=== PATIENT | female | born 1955 | race Caucasian/White ===

== ENCOUNTER → 2017-11-10 13:53 | Outpatient (CLI) | payer OTHER, SELFPAY ==
--- NOTE | 2017-11-10 | DI.MG.S_ITS ---
BILATERAL DIGITAL SCREENING MAMMOGRAM 3D/2D WITH CAD: 11/10/2017 CLINICAL: Routine screening. Family history of breast cancer. Comparison is made to exams dated: 11/07/2016 mammogram, 11/02/2015 mammogram, and 11/02/2015 mammogram - [facility]. The tissue of both breasts is heterogeneously dense. This may lower the sensitivity of mammography. Current study was also evaluated with a Computer Aided Detection (CAD) system. No significant masses, calcifications, or other findings are seen in either breast. There has been no significant interval change. IMPRESSION: NEGATIVE There is no mammographic evidence of malignancy. A 1 year screening mammogram is recommended. This exam was interpreted at Station ID: [id number]. NOTE: For mammograms, a report in lay terms will be sent to the patient. Approximately 15% of breast malignancies will not be visualized mammographically. In the management of a palpable breast mass, a negative mammogram must not discourage biopsy of a clinically suspicious lesion. Electronically Signed By: Vic griffin/more:11/10/2017 16:23:42 letter sent: Normal Exam ACR BI-RADS Category 1: Negative 3341F
== END ==
PROVIDERS: PCP Physician Assistant; Visit Provider Physician Assistant
DX: Z12.31 Encounter for screening mammogram for malignant neoplasm of breast (principal); Z80.3 Family history of malignant neoplasm of breast
CPT/HCPCS: 77063; 77067

== ENCOUNTER → 2017-12-01 12:06 | Outpatient (CLI) | payer OTHER, SELFPAY ==
[2017-12-01 13:15] LABS: Thyroid Stimulating Hormone 2.48 uIU/mL (0.47-4.68)
== END ==
PROVIDERS: PCP Physician Assistant; Visit Provider Physician Assistant
DX: R94.6 Abnormal results of thyroid function studies (principal); E03.9 Hypothyroidism, unspecified
CPT/HCPCS: 36415; 84443

== ENCOUNTER → 2018-11-12 11:22 | Outpatient (CLI) | payer OTHER, SELFPAY ==
--- NOTE | 2018-11-12 | DI.MG.S_ITS ---
BILATERAL DIGITAL SCREENING MAMMOGRAM 3D/2D WITH CAD: 11/12/2018 CLINICAL: Routine screening. Comparison is made to exams dated: 11/10/2017 mammogram, 11/07/2016 mammogram, and 11/02/2015 mammogram - [facility]. The tissue of both breasts is heterogeneously dense. This may lower the sensitivity of mammography. Current study was also evaluated with a Computer Aided Detection (CAD) system. No significant masses, calcifications, or other findings are seen in either breast. There has been no significant interval change. IMPRESSION: NEGATIVE There is no mammographic evidence of malignancy. A 1 year screening mammogram is recommended. This exam was interpreted at Station ID: [id number]. NOTE: For mammograms, a report in lay terms will be sent to the patient. Approximately 15% of breast malignancies will not be visualized mammographically. In the management of a palpable breast mass, a negative mammogram must not discourage biopsy of a clinically suspicious lesion. Electronically Signed By: Patric oviedo/more:11/12/2018 17:04:13 letter sent: Normal Exam ACR BI-RADS Category 1: Negative 3341F
== END ==
PROVIDERS: PCP Physician Assistant; Visit Provider Physician Assistant
DX: Z12.31 Encounter for screening mammogram for malignant neoplasm of breast (principal)
CPT/HCPCS: 77063; 77067

== ENCOUNTER → 2018-12-11 07:01 | Outpatient (CLI) | payer OTHER, SELFPAY ==
[2018-12-11 09:03] LABS: Alanine Aminotransferase 22 IU/L (9-52); Albumin 4.3 g/dL (3.5-5.0); Albumin Globulin Ratio 1.4 (1.0-2.8); Alkaline Phosphatase 53 U/L (38-126); Aspartate Aminotransferase 40 IU/L (14-36); BUN Creatinine Ratio 25.7 (6-22); Bilirubin Total 0.5 mg/dL (0.2-1.3); Blood Urea Nitrogen 18 mg/dL (7-17); Calcium 9.3 mg/dL (8.4-10.2); Carbon Dioxide 31 mmol/L (22-32); Chloride 107 mmol/L (98-107); Cholesterol 170 mg/dL (140-199); Estimated Glomerular Filt Rate > 60.0 mL/min (>60); Glucose 77 mg/dL (80-110); HDL Cholesterol 56 mg/dL (40-60); HEMOLYSIS < 15 (0-50); LDL Cholesterol Calculated 101 mg/dL (<100); Potassium 4.2 mmol/L (3.4-5.1); Sodium 145 mmol/L (137-145); Total Protein 7.3 g/dL (6.3-8.2); Triglycerides 63 mg/dL (35-150)
[2018-12-11 09:30] LABS: Thyroid Stimulating Hormone 2.76 uIU/mL (0.47-4.68)
== END ==
PROVIDERS: PCP Physician Assistant; Visit Provider Physician Assistant
DX: E03.9 Hypothyroidism, unspecified (principal); Z13.220 Encounter for screening for lipoid disorders; Z13.6 Encounter for screening for cardiovascular disorders
CPT/HCPCS: 36415; 80053; 80061; 84443

== ENCOUNTER → 2019-08-28 08:11 | Outpatient (CLI) | payer OTHER, SELFPAY ==
[2019-08-28 10:14] LABS: Appearance Urine UA CLEAR; Bilirubin Urine UA NEGATIVE (NEGATIVE); Color Urine UA YELLOW; Glucose Urine UA NEGATIVE (Negative); Ketones Urine UA NEGATIVE (NEGATIVE); Leukocyte Esterase Urine UA TRACE (NEGATIVE); Nitrite Urine UA NEGATIVE (Negative); Occult Blood Urine UA TRACE-INTACT (Negative); Protein Urine UA NEGATIVE (Negative); Specific Gravity Urine UA <=1.005 (1.000-1.035); Urobilinogen Urine UA 0.2 E.U./dL (0.2)
[2019-08-28 10:23] LABS: Bacteria Urine Occasional (0-1); Culture Indicated Urine Specimen Cultured; RBC Urine 0-1/HPF (0-5/HPF); WBC Urine 0-1/HPF (0-5/HPF); pH Urine UA 6.5 (4.5-8.0)
== END ==
PROVIDERS: PCP Family Medicine; Referring Provider Specialist; Visit Provider Specialist
DX: R30.0 Dysuria (principal); R39.15 Urgency of urination
CPT/HCPCS: 81001; 87086

== ENCOUNTER → 2019-11-15 07:09 | Outpatient (CLI) | payer OTHER, SELFPAY ==
[2019-11-15 07:51] LABS: Add Manual Diff / Slide Review NO; Basophils Absolute Auto 0 /uL (0-100); Basophils Percent Auto 0.4 % (0-2); Eosinophils Absolute Auto 100 /uL (0-450); Eosinophils Percent Auto 1.6 % (2-4); Hematocrit 37.4 % (36-46); Hemoglobin 12.7 g/dL (12.0-16.0); Lymphocytes Absolute Auto 2300 /uL (1100-4500); Lymphocytes Percent Auto 31.3 % (25-40); Mean Corpuscular Hemoglobin 29.4 PG (26-34); Mean Corpuscular Volume 86.3 fL (80-100); Monocytes Absolute Auto 500 /uL (0-900); Monocytes Percent Auto 6.6 % (3-14); Neutrophils Absolute Auto 4300 /uL (1500-7000); Neutrophils Percent Auto 60.1 % (50-75); Platelet Count 260 X10^3/uL (150-400); Red Blood Cell Count 4.34 X10^6/uL (4.0-5.2); Red Cell Distribution Width 13.4 % (11.6-14.8); White Blood Cell Count 7.2 X10^3/uL (4.5-11.0)
[2019-11-15 08:05] LABS: Blood Urea Nitrogen 24 mg/dL (7-17); Calcium 9.4 mg/dL (8.4-10.2); Carbon Dioxide 28 mmol/L (22-32); Chloride 107 mmol/L (98-107); Cholesterol 176 mg/dL (140-199); Estimated Glomerular Filt Rate > 60.0 mL/min (>60); Glucose 85 mg/dL (80-110); HDL Cholesterol 54 mg/dL (40-60); HEMOLYSIS < 15 (0-50); LDL Cholesterol Calculated 111 mg/dL (<100); Potassium 4.2 mmol/L (3.4-5.1); Sodium 140 mmol/L (137-145); Triglycerides 57 mg/dL (35-150)
[2019-11-15 08:39] LABS: TSH w/ Reflex to FT4 3.33 uIU/mL (0.47-4.68)
== END ==
PROVIDERS: PCP Family Medicine; Referring Provider Family Medicine; Visit Provider Family Medicine
DX: Z13.220 Encounter for screening for lipoid disorders (principal); E03.9 Hypothyroidism, unspecified; M81.0 Age-related osteoporosis without current pathological fracture
CPT/HCPCS: 36415; 80048; 80061; 84443; 85025

== ENCOUNTER → 2019-12-29 16:38 | Outpatient (CLI) | payer OTHER, SELFPAY ==
--- NOTE | 2019-12-29 16:41 | DI.MG.S_ITS ---
BILATERAL DIGITAL SCREENING MAMMOGRAM 3D/2D WITH CAD: 12/29/2019 CLINICAL: Routine screening. Comparison is made to exams dated: 11/12/2018 mammogram, 11/10/2017 mammogram, and 11/07/2016 mammogram - [facility]. The tissue of both breasts is heterogeneously dense. This may lower the sensitivity of mammography. Current study was also evaluated with a Computer Aided Detection (CAD) system. There are benign lymph nodes in both breasts. There also are benign post operative findings in the left breast. No significant masses, calcifications, or other findings are seen in either breast. There has been no significant interval change. IMPRESSION: There is no mammographic evidence of malignancy. A 1 year screening mammogram is recommended. This exam was interpreted at Station ID: [id number]. NOTE: For mammograms, a report in lay terms will be sent to the patient. Approximately 15% of breast malignancies will not be visualized mammographically. In the management of a palpable breast mass, a negative mammogram must not discourage biopsy of a clinically suspicious lesion. Electronically Signed By: Patric oviedo/more:12/29/2019 18:13:05 letter sent: Normal Exam ACR BI-RADS Category 2: Benign Finding(s) 3342F
== END ==
PROVIDERS: PCP Family Medicine; Referring Provider Family Medicine; Visit Provider Family Medicine
DX: Z12.31 Encounter for screening mammogram for malignant neoplasm of breast (principal)
CPT/HCPCS: 77063; 77067

== ENCOUNTER → 2020-11-13 06:56 | Outpatient (CLI) | payer OTHER, SELFPAY ==
[2020-11-13 08:03] LABS: Hematocrit 38.3 % (36-46); Hemoglobin 12.9 g/dL (12.0-16.0); Mean Corpuscular HGB Conc 33.8 % (30-36); Mean Corpuscular Hemoglobin 28.7 PG (26-34); Mean Corpuscular Volume 85.1 fL (80-100); Platelet Count 253 X10^3/uL (150-400); Red Cell Distribution Width 13.6 % (11.6-14.8); White Blood Cell Count 5.9 X10^3/uL (4.5-11.0)
[2020-11-13 08:17] LABS: BUN Creatinine Ratio 21.6 (6-22); Blood Urea Nitrogen 16 mg/dL (7-17); Calcium 9.6 mg/dL (8.4-10.2); Carbon Dioxide 29 mmol/L (22-32); Chloride 103 mmol/L (98-107); Cholesterol 159 mg/dL (140-199); Estimated Glomerular Filt Rate > 60.0 mL/min (>60); Glucose 86 mg/dL (80-110); HDL Cholesterol 51 mg/dL (40-60); HEMOLYSIS < 15 (0-50); LDL Cholesterol Calculated 92 mg/dL (<100); Potassium 4.3 mmol/L (3.4-5.1); Sodium 139 mmol/L (137-145); Triglycerides 79 mg/dL (35-150)
[2020-11-13 08:54] LABS: TSH w/ Reflex to FT4 2.34 uIU/mL (0.47-4.68)
[2020-11-13 10:06] LABS: Neutrophils Absolute Manual 3481 /uL (3000-5900); Total Cells Counted 100
[2020-11-13 10:08] LABS: RBC Morphology Norm
== END ==
PROVIDERS: PCP Family Medicine; Referring Provider Family Medicine; Visit Provider Family Medicine
DX: E03.9 Hypothyroidism, unspecified (principal)
CPT/HCPCS: 36415; 80048; 80061; 84443; 85025

== ENCOUNTER → 2021-01-01 14:13 | Outpatient (CLI) | payer OTHER, SELFPAY ==
--- NOTE | 2021-01-01 | DI.MG.S_ITS ---
BILATERAL DIGITAL SCREENING MAMMOGRAM 3D/2D WITH CAD: 01/01/2021 CLINICAL: Routine screening. Comparison is made to exams dated: 12/29/2019 mammogram, 11/12/2018 mammogram, and 11/10/2017 mammogram - [facility]. The tissue of both breasts is heterogeneously dense. This may lower the sensitivity of mammography. Current study was also evaluated with a Computer Aided Detection (CAD) system. No significant masses, calcifications, or other findings are seen in either breast. There has been no significant interval change. IMPRESSION: NEGATIVE There is no mammographic evidence of malignancy. A 1 year screening mammogram is recommended. This exam was interpreted at Station ID: [id number]. NOTE: For mammograms, a report in lay terms will be sent to the patient. Approximately 15% of breast malignancies will not be visualized mammographically. In the management of a palpable breast mass, a negative mammogram must not discourage biopsy of a clinically suspicious lesion. Electronically Signed By: Norberto flanagan/more:01/01/2021 15:50:38 letter sent: Normal Exam ACR BI-RADS Category 1: Negative 3341F
== END ==
PROVIDERS: PCP Family Medicine; Referring Provider Family Medicine; Visit Provider Family Medicine
DX: Z12.31 Encounter for screening mammogram for malignant neoplasm of breast (principal)
CPT/HCPCS: 77063; 77067

== ENCOUNTER → 2021-02-08 08:44 | Outpatient (CLI) | payer OTHER, SELFPAY ==
[2021-02-08 11:18] LABS: COVID19 -Nasal RAPID Negative (Negative)
== END ==
PROVIDERS: PCP Family Medicine; Referring Provider Specialist; Visit Provider Specialist
DX: Z01.812 Encounter for preprocedural laboratory examination (principal); Z20.822 Contact with and (suspected) exposure to COVID-19
CPT/HCPCS: 87635; C9803

== ENCOUNTER 2021-02-09 07:27 | Day surgery (SDC) | payer OTHER, SELFPAY ==
--- NOTE | 2021-02-09 | PATH_ITS ---
[facility] Accession Number: [id number] . 01 Material submitted: . colon - POLYP AT 25CM X2 . 02 Diagnosis: Colon, Polyp at 25 cm x2, Biopsy: Tubular adenoma in three of four fragments. Hyperplastic polyp in one fragment. MRV 02/13/2021 1211 Local . 02 Electronically signed: . Chloé Rodgers MD, Pathologist NPI- [id number] . 01 Gross description: . POLYP AT 25CM X2: Received in formalin are multiple fragment(s) of hendrix, soft tissue measuring 1.0 x 0.3 x 0.1 cm in aggregate submitted entirely in 1 cassette(s) /YING 02/10/2021 0454 Local . 02 Pathologist provided ICD-10: K63.5 . 02 CPT . 104804 Performed at: 01 [facility] [address] [id number] MD Jessee Guzmán MD Phone: [phone] Performed at: 02 [facility] [address] [place], [place] [id number] MD Chloé Rodgers MD Phone: [phone]
[2021-02-09 07:50] VITALS: BP 113/75; PULSE 68; RESP 20; TEMP 36.4; O2SAT 100; BMI 23.3
[2021-02-09] MEDS: FLEETS ENEMA 1 EACH PR (08:05)
[2021-02-09] MEDS: LACTATED RINGERS 1,000 ML 150 ML IV (08:18)
--- NOTE | 2021-02-09 08:26 | SUR.PREOP ---
Pt given fleets enema due to muddy output from prep, up to BR, out after fleets is much clearer.
--- NOTE | 2021-02-09 09:09 | PM.HP.1 ---
History of Present Illness History of Present Illness Date Patient Seen: 02/09/21 Time Patient Seen: 09:10 Chief complaint: SDC Narrative: The patient is a woman here for screening colonoscopy. No family history of colon cancer. Last colonoscopy 10 years ago. Patient History Medical History (Updated 12/20/20 @ 09:33 by Indio Melendez DO) Bee sting allergy Bilateral leg pain Leg cramps, sleep related Lichenification Low back pain Osteoporosis without current pathological fracture Screen for colon cancer Surgical History Status post breast lumpectomy Family & Social History Family History Brother History of skin cancer Father History of skin cancer Mother Other and unspecified hyperlipidemia History of skin cancer Hypertension Social History: household members spouse Tobacco & Substance use: Smoking Status Former smoker alcohol intake current alcohol intake frequency a few times a month Substance Use Type marijuana Meds Home Medications and Allergies Home Medications Medication Instructions Recorded Confirmed Type Vitamin D3 1 cap PO DAILY 12/17/18 02/09/21 History epinephrine 1 mg/mL injection kit 1 mg IM Q20M PRN #1 each 10/14/19 02/09/21 Rx coenzyme Q10 200 mg/gram oral 200 mg PO DAILY 01/18/20 02/09/21 History powder (H2Q CoQ10) magnesium 30 mg tablet 30 mg PO DAILY 01/18/20 02/09/21 History omega-3 fatty acids 1,000 mg 1,000 mg PO DAILY 01/18/20 02/09/21 History capsule (Fish Oil Concentrate) cyclobenzaprine 10 mg tablet See Rx Instructions .ROUTE 04/06/20 02/09/21 Rx .COMPLEX #30 tab levothyroxine 88 mcg tablet See Rx Instructions .ROUTE 11/30/20 02/09/21 Rx .COMPLEX #90 tab Allergies Allergy/AdvReac Type Severity Reaction Status Date / Time shellfish derived Allergy Severe ITCHING Verified 02/09/21 08:15 [SHELLFISH DERIVED] AND HIVES venom-wasp Allergy Severe Swelling Verified 12/20/20 09:00 and itching hydrocodone [From VICODIN] AdvReac Severe itchy Verified 02/09/21 08:15 Review of Systems Review of Systems Narrative: No cardiopulmonary problems. No GI or symptomatology. Exam Vital Signs (past 8 hours): - 02/09/21 07:50 Temperature 97.5 F L Pulse Rate 68 Respiratory Rate 20 Blood Pressure 113/75 Pulse Oximetry 100 Oxygen Delivery Method Room Air Narrative Exam Narrative: Pleasant cooperative patient no apparent distress. Lungs are clear to auscultation. No rales or rhonchi. Heart regular rate and rhythm no murmur gallop. Abdomen is soft nontender without mass. No obvious hernias. Patient is alert and oriented x3. Assessment & Plan Assessment & Plan narrative: I have discussed the procedure and the rationale with the patient including risks of bleeding, perforation which would necessitate a major operation, failure to find remove all lesions and the potential to tattoo. They appeared to understand and wished to proceed. Time Spent With Patient Critical Care time: I spent a total of [] minutes of critical care time on this patient's care today; this time is exclusive of procedural time.
--- NOTE | 2021-02-09 09:12 | PM.PREOP ---
Pre-operative Note COVID-19 COVID-19 status: Negative Result date/Date tested (Pos, Neg/Pending): 02/08/21 Interval Note History & Physical reviewed/Exam performed by Physician: Yes Changes to H&P: No ASA Class (for procedural sedation): I
--- NOTE | 2021-02-09 09:39 | PM.OP.ENDO ---
Operative Date/Time/Diagnoses Date of procedure: 02/09/21 Time of procedure: 09:39 Pre-op diagnosis: Screening exam. Post-op diagnosis: other (Screening exam. Two small polyps distal colon/rectal area.) Procedure & Clinicians Study performed: Colonoscopy with cold biopsy Same procedure as scheduled: Yes Indications: Screening. Last exam 10 years ago. Surgeon: Arsen Bell Procedure Notes SCOAP/Timeout: Performed Procedure in detail: The patient was placed in the left lateral decubitus position and underwent IV sedation directed by the surgeon consisting of fentanyl and Versed. Digital exam was unremarkable. The scope was inserted and advanced through the rectum into the sigmoid, descending, transverse, and ascending colon. There was some narrowing entering into the sigmoid colon but otherwise I do not really see any inflammation or diverticuli. The cecum was reached identified by the ileocecal valve and the appendiceal opening. The scope was gradually brought out. Two small Polyps were found at 20-25 cm from the anal verge. These were placed in the same container. They appeared to be completely removed with cold large biopsy forceps. The scope ultimately was retroflexed in the rectum. The appearance was normal except for some scarring. There did not appear to be any active hemorrhoidal disease. The scope was removed and the patient tolerated the procedure well. Prep was very good Scope withdrawal time: 8 minutes(11 total) Sedation minutes: 22 Findings: polyp Specimen(s): other (Polyps) Complications: none Post-procedure Recommendations: Colonscopy in 5 years Follow up: as needed Disposition: PACU
[2021-02-09] MEDS: diphenhydrAMINE 50 MG/ML VIAL 25 MG IV (09:40)
[2021-02-09] MEDS: fentaNYL 250 MCG/5 ML INJ IV (09:41)
[2021-02-09] MEDS: MIDAZOLAM 5 MG/5 ML VIAL IV (09:41)
[2021-02-09 09:42] VITALS: BP 131/67; PULSE 55; RESP 9; O2SAT 100
[2021-02-09 09:47] VITALS: BP 130/70; PULSE 54; RESP 11; O2SAT 99
[2021-02-09 09:52] VITALS: BP 131/70; PULSE 53; RESP 16; O2SAT 99
[2021-02-09 09:57] VITALS: BP 138/78; PULSE 75; RESP 11; TEMP 36.6; O2SAT 99
[2021-02-09 10:15] VITALS: BP 111/69; PULSE 51; RESP 16; TEMP 36.7; O2SAT 99
--- NOTE | 2021-02-09 14:55 | SUR.PHASEII ---
Late entry: 1030, pt ready to go, belly soft, + bowel tones tolerated fluids left when ready and left in stable condition.
== END 2021-02-09 10:30 | disposition home or self-care (01) ==
PROVIDERS: PCP Family Medicine; Referring Provider Specialist; Visit Provider Specialist
PROC: 0DJD8ZZ Inspection of Lower Intestinal Tract, Via Natural or Artificial Opening Endoscopic (ICD-10-PCS; CPT 45378; principal; 2021-02-09 08:30)
DX: Z12.11 Encounter for screening for malignant neoplasm of colon (principal); D12.6 Benign neoplasm of colon, unspecified
CPT/HCPCS: 45380; 99152; J1200; J2250; J3010

== ENCOUNTER → 2022-01-02 07:29 | Outpatient (CLI) | payer OTHER, SELFPAY ==
--- NOTE | 2022-01-02 | DI.MG.S_ITS ---
BILATERAL DIGITAL SCREENING MAMMOGRAM 3D/2D WITH CAD: 01/02/2022 CLINICAL: Routine screening. Comparison is made to exams dated: 01/01/2021 mammogram, 12/29/2019 mammogram, and 11/12/2018 mammogram - [facility]. The tissue of both breasts is heterogeneously dense. This may lower the sensitivity of mammography. Current study was also evaluated with a Computer Aided Detection (CAD) system. There are benign post operative findings in the left breast. No significant masses, calcifications, or other findings are seen in either breast. There has been no significant interval change. IMPRESSION: BENIGN There is no mammographic evidence of malignancy. A 1 year screening mammogram is recommended. Based on the Tyrer Cuzick model (a risk assessment model) the patient's lifetime risk is 12.3% and her 10 year risk is 5.8%. According to the ACR, ACS, and NCCN guidelines, an annual breast MRI exam along with mammogram is recommended if the patient's lifetime risk is 20% or greater. This exam was interpreted at Station ID: [id number]. NOTE: For mammograms, a report in lay terms will be sent to the patient. Approximately 15% of breast malignancies will not be visualized mammographically. In the management of a palpable breast mass, a negative mammogram must not discourage biopsy of a clinically suspicious lesion. Electronically Signed By: Tess bettencourt/more:01/02/2022 13:40:56 letter sent: Normal Exam ACR BI-RADS Category 2: Benign Finding(s) 3342F
== END ==
PROVIDERS: PCP Family Medicine; Referring Provider Family Medicine; Visit Provider Family Medicine
DX: Z12.31 Encounter for screening mammogram for malignant neoplasm of breast (principal)
CPT/HCPCS: 77063; 77067

== ENCOUNTER → 2022-03-25 06:52 | Outpatient (CLI) | payer OTHER, SELFPAY ==
[2022-03-25 08:49] LABS: Add Manual Diff / Slide Review NO; Basophils Absolute Auto 0 /uL (0-100); Basophils Percent Auto 0.6 % (0-2); Eosinophils Absolute Auto 200 /uL (0-450); Eosinophils Percent Auto 2.3 % (2-4); Hematocrit 38.2 % (36-46); Hemoglobin 12.7 g/dL (12.0-16.0); Lymphocytes Absolute Auto 2200 /uL (1100-4500); Lymphocytes Percent Auto 32.5 % (25-40); Mean Corpuscular HGB Conc 33.3 % (30-36); Mean Corpuscular Hemoglobin 28.2 PG (26-34); Mean Corpuscular Volume 84.7 fL (80-100); Monocytes Absolute Auto 500 /uL (0-900); Monocytes Percent Auto 6.8 % (3-14); Neutrophils Absolute Auto 4000 /uL (1500-7000); Neutrophils Percent Auto 57.8 % (50-75); Platelet Count 257 X10^3/uL (150-400); Red Blood Cell Count 4.51 X10^6/uL (4.0-5.2); Red Cell Distribution Width 13.7 % (11.6-14.8); White Blood Cell Count 6.9 X10^3/uL (4.5-11.0)
[2022-03-25 09:03] LABS: Alanine Aminotransferase 17 IU/L (<35); Albumin 4.2 g/dL (3.5-5.0); Albumin Globulin Ratio 1.4 (1.0-2.8); Alkaline Phosphatase 55 U/L (38-126); Aspartate Aminotransferase 28 IU/L (14-36); BUN Creatinine Ratio 22.8 (6-22); Bilirubin Total 0.1 mg/dL (0.2-1.3); Blood Urea Nitrogen 18 mg/dL (7-17); Calcium 8.9 mg/dL (8.4-10.2); Carbon Dioxide 27 mmol/L (22-32); Chloride 105 mmol/L (98-107); Cholesterol 167 mg/dL (140-199); Estimated Glomerular Filt Rate > 60 mL/min (>60); Globulin 3.1 g/dL (1.7-4.1); Glucose 86 mg/dL (80-110); HDL Cholesterol 53 mg/dL (40-60); HEMOLYSIS < 15 (0-50); LDL Cholesterol Calculated 103 mg/dL (<100); Potassium 4.1 mmol/L (3.4-5.1); Sodium 141 mmol/L (137-145); Total Protein 7.3 g/dL (6.3-8.2); Triglycerides 55 mg/dL (35-150)
[2022-03-25 09:27] LABS: Free T3, Triiodothyronine Free 3.41 pg/mL (2.77-5.27); Free T4, Direct Thyroxine 1.61 ng/dL (0.78-2.19)
[2022-03-25 09:40] LABS: Thyroid Stimulating Hormone 2.38 uIU/mL (0.47-4.68)
== END ==
PROVIDERS: PCP Family Medicine; Referring Provider Family Medicine; Visit Provider Family Medicine
DX: Z13.220 Encounter for screening for lipoid disorders (principal); E03.9 Hypothyroidism, unspecified
CPT/HCPCS: 36415; 80053; 80061; 82306; 84439; 84443; 84481; 85025

== ENCOUNTER → 2023-01-03 08:16 | Outpatient (CLI) | payer MEDICARE, SELFPAY ==
--- NOTE | 2023-01-03 | DI.MG.S_ITS ---
BILATERAL DIGITAL SCREENING MAMMOGRAM 3D/2D WITH CAD: 01/03/2023 CLINICAL: Routine screening. Comparison is made to exams dated: 01/02/2022 mammogram, 01/01/2021 mammogram, and 12/29/2019 mammogram - [facility]. Both breasts are heterogeneously dense, which may obscure small masses (category c / 51-75% glandular tissue). Current study was also evaluated with a Computer Aided Detection (CAD) system. There are benign post operative findings in the left breast. No significant masses, calcifications, or other findings are seen in either breast. There has been no significant interval change. IMPRESSION: BENIGN There is no mammographic evidence of malignancy. A 1 year screening mammogram is recommended. Based on the Tyrer Cuzick model (a risk assessment model) the patient's lifetime risk is 11.8% and her 10 year risk is 5.8%. According to the ACR, ACS, and NCCN guidelines, an annual breast MRI exam along with mammogram is recommended if the patient's lifetime risk is 20% or greater. This exam was interpreted at Station ID: [id number]. NOTE: For mammograms, a report in lay terms will be sent to the patient. Approximately 15% of breast malignancies will not be visualized mammographically. In the management of a palpable breast mass, a negative mammogram must not discourage biopsy of a clinically suspicious lesion. Electronically Signed By: Tess bettencourt/more:01/03/2023 15:36:52 letter sent: Normal Exam ACR BI-RADS Category 2: Benign Finding(s) 3342F
== END ==
PROVIDERS: PCP Family Medicine; Referring Provider Family Medicine; Visit Provider Family Medicine
DX: Z12.31 Encounter for screening mammogram for malignant neoplasm of breast (principal)
CPT/HCPCS: 77063; 77067

== ENCOUNTER → 2023-01-24 06:52 | Outpatient (CLI) | payer MEDICARE, SELFPAY ==
[2023-01-24 07:48] LABS: Add Manual Diff / Slide Review NO; Basophils Absolute Auto 0 /uL (0-100); Basophils Percent Auto 0.5 % (0-2); Eosinophils Absolute Auto 200 /uL (0-450); Eosinophils Percent Auto 2.1 % (2-4); Hematocrit 39.6 % (36-46); Hemoglobin 13.4 g/dL (12.0-16.0); Lymphocytes Absolute Auto 2100 /uL (1100-4500); Lymphocytes Percent Auto 28.4 % (25-40); Mean Corpuscular HGB Conc 33.9 % (30-36); Mean Corpuscular Hemoglobin 28.5 PG (26-34); Mean Corpuscular Volume 84.1 fL (80-100); Monocytes Absolute Auto 400 /uL (0-900); Monocytes Percent Auto 5.9 % (3-14); Neutrophils Absolute Auto 4700 /uL (1500-7000); Neutrophils Percent Auto 63.1 % (50-75); Platelet Count 281 X10^3/uL (150-400); Red Blood Cell Count 4.71 X10^6/uL (4.0-5.2); Red Cell Distribution Width 13.9 % (11.6-14.8); White Blood Cell Count 7.4 X10^3/uL (4.5-11.0)
[2023-01-24 07:58] LABS: Alanine Aminotransferase 23 IU/L (<35); Albumin 4.4 g/dL (3.5-5.0); Albumin Globulin Ratio 1.5 (1.0-2.8); Alkaline Phosphatase 63 U/L (38-126); Aspartate Aminotransferase 31 IU/L (14-36); BUN Creatinine Ratio 27.3 (6-22); Bilirubin Total 0.5 mg/dL (0.2-1.3); Blood Urea Nitrogen 21 mg/dL (7-17); Calcium 9.2 mg/dL (8.4-10.2); Carbon Dioxide 26 mmol/L (22-32); Chloride 107 mmol/L (98-107); Cholesterol 199 mg/dL (140-199); Estimated Glomerular Filt Rate > 60 mL/min (>60); Globulin 2.9 g/dL (1.7-4.1); Glucose 84 mg/dL (80-110); HDL Cholesterol 63 mg/dL (40-60); HEMOLYSIS < 15 (0-50); LDL Cholesterol Calculated 116 mg/dL (<100); Potassium 4.2 mmol/L (3.4-5.1); Sodium 141 mmol/L (137-145); Total Protein 7.3 g/dL (6.3-8.2); Triglycerides 98 mg/dL (35-150)
[2023-01-24 08:12] LABS: Free T3, Triiodothyronine Free 2.93 pg/mL (2.77-5.27); Free T4, Direct Thyroxine 1.34 ng/dL (0.78-2.19)
[2023-01-24 08:25] LABS: Thyroid Stimulating Hormone 4.64 uIU/mL (0.47-4.68)
== END ==
PROVIDERS: PCP Family Medicine; Referring Provider Family Medicine; Visit Provider Family Medicine
DX: E03.9 Hypothyroidism, unspecified (principal); Z79.899 Other long term (current) drug therapy; Z13.6 Encounter for screening for cardiovascular disorders
CPT/HCPCS: 80053; 80061; 84439; 84443; 84481; 85025

== ENCOUNTER → 2023-02-13 11:52 | Outpatient (CLI) | payer MEDICARE, SELFPAY ==
--- NOTE | 2023-02-13 11:55 | DI.RAD.S_ITS ---
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 COMPARISON: None. FINDINGS: Bones: 5 nonrib-bearing vertebrae are present. There is normal bony alignment. No vertebral body compression fractures. No suspicious bony lesions. Mild degenerative disc disease throughout the lumbar spine. Mild L 4-L5 and L5-S1 facet arthropathy. Soft tissues: Overlying bowel gas pattern is normal. No suspicious soft tissue calcifications. Oblique images: No pars defects. IMPRESSION: 1. Multilevel degenerative disc disease. 2. Multilevel facet arthropathy. 3. No fracture. No acute osseous lesion. If symptoms and/or clinical suspicion for pathology persists, evaluation with MRI should be considered for further assessment. Dictated by: Sol Lemons MD, PhD on 02/13/2023 at 13:25 Approved by: Sol Lemons MD, PhD on 02/13/2023 at 13:25
--- NOTE | 2023-02-13 11:55 | DI.RAD.S_ITS ---
PROCEDURE: XR CHEST 2V INDICATIONS: pain right side chest x 1 week, pt thinks it is gas TECHNIQUE: 2 views of the chest were acquired. COMPARISON: None. FINDINGS: Surgical changes and devices: None. Lungs and pleura: Lungs are clear. No pleural effusions or pneumothorax. Mediastinum: Mediastinal contours are normal. Heart size is normal. Bones and chest wall: No suspicious bony abnormalities. Soft tissues appear unremarkable. IMPRESSION: No acute cardiopulmonary abnormality is seen. Dictated by: Sol Lemons MD, PhD on 02/13/2023 at 13:24 Approved by: Sol Lemons MD, PhD on 02/13/2023 at 13:24
[2023-02-14 16:10] LABS: Interpretation Negative (Negative)
== END ==
PROVIDERS: PCP Family Medicine; Referring Provider Physician Assistant; Visit Provider Physician Assistant
DX: R10.9 Unspecified abdominal pain (principal); R07.9 Chest pain, unspecified; M54.50 Low back pain, unspecified
CPT/HCPCS: 71046; 72110; 83013

== ENCOUNTER 2023-03-27 08:00 | Outpatient (RCR) | payer MEDICARE, SELFPAY ==
--- NOTE | 2023-03-04 16:49 | PT.OIE ---
Current Diagnoses Low back pain, unspecified (03/04/23) Past Medical History (Last Updated 03/03/23 @ 12:47 by Lino Adame MD) Bee sting allergy Bilateral leg pain Closed comedone Leg cramps, sleep related Lichenification Low back pain Lumbar spondylosis Osteoporosis without current pathological fracture Screen for colon cancer Past Surgical History (Last Reviewed 03/23/22 @ 08:27 by DEVANG Jaimes) Status post breast lumpectomy Visit Care Team Role Provider Type Jonathan Melendez DO Family Provider Physician Primary Care Provider Specialty: Family Practice Address: [address] [place] [address], [id number] Email: Dee Lr PA-C Attending Provider Advanced Pr Specialist Referring Provider Specialty: Medical Wound Care Address: [address] [place] [address], [address] Email: [email or web address] Physical Therapy Initial Evaluation PT-OP-A Visit Information Start: 03/04/23 16:37 Freq: Status: Active Protocol: Document 03/04/23 16:37 ED (Rec: 03/04/23 16:49 ED [id number]) Out-Patient Physical Therapy Visit Information Visit Information Visit Type Initial Evaluation Visit Start Time 16:00 Visit Stop Time 16:45 Total Visit Minutes 45 Visit Number 1 Evaluation Information Evaluation Date 03/04/23 PT-OP-B Current Condition Start: 03/04/23 16:37 Freq: Status: Active Protocol: Document 03/04/23 16:37 ED (Rec: 03/04/23 16:49 ED [id number]) Current Condition History of Current Condition Onset Date chronic Current Complaints low back pain History of Current Condition Pt states that she has had low back pain for almost 2 decades. She has had PT before and it made her pain worse and she hasn't had it since. She does occasionally go to a chiropractor. She states that she doesn't ever flex her spine b/c it hurts and she also doesn't like to extend it b/c that hurts. 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 She does hike and she normally can do that okay. She states she is hesistant for physical therapy b/c of past experiences but is willing to try it again. PT-OP-C Subjective Start: 03/04/23 16:37 Freq: Status: Active Protocol: Document 03/04/23 16:37 ED (Rec: 03/04/23 16:49 ED [id number]) Patient Questionnaires Oswestry Low Back Index Oswestry Score 20 / 50 = 40.0 % Oswestry Impairment 40 to 59% Impaired (Score 40- 59) OP-PT Pain Assessment Location low back Intensity 6 Scale Used Numeric (0 - 10) Pain Aggravating Factors Position,ADL's,Activity, Exercise,Bending,Lifting PT-OP-K Range of Motion Start: 03/04/23 16:37 Freq: Status: Active Protocol: Document 03/04/23 16:37 ED (Rec: 03/04/23 16:49 ED [id number]) Lumbar Spine Range of Motion Lumbar Spine Active Testing Position Sitting Flexion 0 Extension 0 PT-OP-L Special Tests Start: 03/04/23 16:37 Freq: Status: Active Protocol: Document 03/04/23 16:37 ED (Rec: 03/04/23 16:49 ED [id number]) Special Tests Lumbar Spine Special Tests Standing Flexion Test Results + PT-OP-T Assessment and Plan Start: 03/04/23 16:37 Freq: Status: Active Protocol: Document 03/04/23 16:37 ED (Rec: 03/04/23 16:49 ED [id number]) Physical Therapy Assessment Rehab Potential Rehabilitation Potential Fair Evaluation Complexity Number of Personal Factors/Comorbidities 1-2 Number of Body Systems Impaired 3 Clinical Presentation at Evaluation Stable Impairments Impairments Activity Tolerance,Functional Activities,Pain,Posture,ROM, Sensation,Strength Goals Oswestry Medical Office Specialist Goal (LTG) Pt will improve Oswestry Low back questionnaire by 10 points to a score <10/50. LTG Duration 6 weeks lumbar flexion Impairment lumbar flexion tolerance Short Term Goal (STG) pt will demonstrate ability to flex lumbar spine partially in sitting and supine position c/ pain <4/10. STG Duration 3 weeks Medical Office Specialist Goal (LTG) Pt will be able to bend over and get hands to ankles in standing position c/ pain <4/ 10. LTG Duration 6-8 weeks HEP Impairment HEP Short Term Goal (STG) pt will report performing HEP >3 days/week. STG Duration 3 weeks Medical Office Specialist Goal (LTG) pt will report performing HEP >3 days/week. LTG Duration 6-8 weeks Assessment Summary Assessment Pt reported to PT for chronic low back pain. She did demonstrate fear avoidance behavior and kinesiophobia and she has adapted her lifestyle to mitigate moving thoracolumbar spine as she doesn't bend over to don shoes /socks and keeps a braced back constantly when performing daily activities. Her pain is likely multifactorial and will need education on pain science and low back pain. Pt provided HEP of : partial ROM hip bridges, hooklying hip abduction, seated lumbar flexion, and sit<>stands. Pt able to perform exercises today within tolerance but she was hesitant for the seated lumbar flexion drill. PT informed patient that therapy will start with a very low volume of exercises and with gentle exercises to reduce chance of discomfort or pain. Physical Therapy Plan Frequency and Duration Frequency of Treatment 2x/Week Duration of treatment (weeks) 12 Plan of Care Start Date 03/04/23 Plan of Care End Date 06/02/23 Therapeutic Interventions Therapeutic Interventions Gait Training,Home Exercise Program,Joint Mobilizations, Manual Therapy,Neuromuscular Re-education,Patient/Caregiver Education,Self-Care/Home Management,Soft Tissue Mobilization,Taping, Therapeutic Activities, Therapeutic Exercises Modalities Biofeedback,Cold Pack/Ice Massage,Electric Stimulation, Hot Packs Next Visit Focus/Plan Next Note Type Treatment Note Next Visit Plan HEP : PB flexion, bridge, sit< >stand, hooklying banded ER 2 sets?
--- NOTE | 2023-03-04 16:49 | PT.OPPOC ---
Physical, Occupational & Speech Therapy At [facility] Current Diagnoses Low back pain, unspecified (03/04/23) Visit Care Team Role Provider Type Jonathan Melendez DO Family Provider Physician Primary Care Provider Specialty: Family Practice Address: [address] [place] [address], [id number] Email: Dee Lr PA-C Attending Provider Advanced Food Safety Director Referring Provider Specialty: Medical Wound Care Address: [address] [place] [address], [id number] Email: [email or web address] Plan Of Care PT-OP-T Assessment and Plan Start: 03/04/23 16:37 Freq: Status: Active Protocol: Document 03/04/23 16:37 ED (Rec: 03/04/23 16:49 ED [id number]) Physical Therapy Assessment Rehab Potential Rehabilitation Potential Fair Evaluation Complexity Number of Personal Factors/Comorbidities 1-2 Number of Body Systems Impaired 3 Clinical Presentation at Evaluation Stable Impairments Impairments Activity Tolerance,Functional Activities,Pain,Posture,ROM, Sensation,Strength Goals Oswestry Assistant Store Manager Goal (LTG) Pt will improve Oswestry Low back questionnaire by 10 points to a score <10/50. LTG Duration 6 weeks lumbar flexion Impairment lumbar flexion tolerance Short Term Goal (STG) pt will demonstrate ability to flex lumbar spine partially in sitting and supine position c/ pain <4/10. STG Duration 3 weeks Assistant Store Manager Goal (LTG) Pt will be able to bend over and get hands to ankles in standing position c/ pain <4/ 10. LTG Duration 6-8 weeks HEP Impairment HEP Short Term Goal (STG) pt will report performing HEP >3 days/week. STG Duration 3 weeks Group Home Goal (LTG) pt will report performing HEP >3 days/week. LTG Duration 6-8 weeks Assessment Summary Assessment Pt reported to PT for chronic low back pain. She did demonstrate fear avoidance behavior and kinesiophobia and she has adapted her lifestyle to mitigate moving thoracolumbar spine as she doesn't bend over to don shoes /socks and keeps a braced back constantly when performing daily activities. Her pain is likely multifactorial and will need education on pain science and low back pain. Pt provided HEP of : partial ROM hip bridges, hooklying hip abduction, seated lumbar flexion, and sit<>stands. Pt able to perform exercises today within tolerance but she was hesitant for the seated lumbar flexion drill. PT informed patient that therapy will start with a very low volume of exercises and with gentle exercises to reduce chance of discomfort or pain. Physical Therapy Plan Frequency and Duration Frequency of Treatment 2x/Week Duration of treatment (weeks) 12 Plan of Care Start Date 03/04/23 Plan of Care End Date 06/02/23 Therapeutic Interventions Therapeutic Interventions Gait Training,Home Exercise Program,Joint Mobilizations, Manual Therapy,Neuromuscular Re-education,Patient/Caregiver Education,Self-Care/Home Management,Soft Tissue Mobilization,Taping, Therapeutic Activities, Therapeutic Exercises Modalities Biofeedback,Cold Pack/Ice Massage,Electric Stimulation, Hot Packs Next Visit Focus/Plan Next Note Type Treatment Note Next Visit Plan HEP : PB flexion, bridge, sit< >stand, hooklying banded ER 2 sets? Plan of Care Dates Plan of Care Start Date 03/04/23 Plan of Care End Date 06/02/23 Electronically Signed by: Ken Rivera, PT 03/04/23 5127 If you are in agreement with this Plan of Care, please return a signed and dated copy. I have reviewed this Plan of Care and certify that the skilled therapy services above are required to meet the patient?s needs. Physician Signature Date Printed Name and Credentials Clinical Instructor Signature Printed Name and Credentials
--- NOTE | 2023-03-07 09:14 | PT.OTN ---
Current Diagnoses Low back pain, unspecified (03/07/23) Physical Therapy Treatment Note PT-OP-A Visit Information Start: 03/04/23 16:37 Freq: Status: Active Protocol: Document 03/07/23 08:02 LRN (Rec: 03/07/23 09:14 LRN [id number]) Out-Patient Physical Therapy Visit Information Visit Information Visit Type Treatment Note Visit Start Time 08:02 Visit Stop Time 08:53 Total Visit Minutes 51 Visit Number 2 Evaluation Information Evaluation Date 03/04/23 PT-OP-B Current Condition Start: 03/04/23 16:37 Freq: Status: Active Protocol: Document 03/04/23 16:37 ED (Rec: 03/04/23 16:49 ED [id number]) Current Condition History of Current Condition Onset Date chronic Current Complaints low back pain History of Current Condition Pt states that she has had low back pain for almost 2 decades. She has had PT before and it made her pain worse and she hasn't had it since. She does occasionally go to a chiropractor. She states that she doesn't ever flex her spine b/c it hurts and she also doesn't like to extend it b/c that hurts. 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 She does hike and she normally can do that okay. She states she is hesistant for physical therapy b/c of past experiences but is willing to try it again. PT-OP-C Subjective Start: 03/04/23 16:37 Freq: Status: Active Protocol: Document 03/07/23 08:02 LRN (Rec: 03/07/23 09:14 LRN [id number]) OP-PT Subjective Patient Comments Patient Comments Pt states she wants something that won't hurt her more. All ex's previoiusly suggested were not appropriate for her back. MOst of the pain is down the L leg. Most fot he ex's he gave were ones she had done before. She had to go to chiropractor to get reliease of the L hip. She has a [address] ahead of her so she doesn't want to get worse. Wnats ex's that won't hurt her . never tried one ex at a time. She has realized the problem is her L leg pain. Original injury was DDD with a bulge and tear. The only person to have helped her is the chiropractor, Lou guevara Milton. Yesterday walkig and felt crunching in back. 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 Asking for ex' to stabilizing back. Does ex program. Currently tols side lying best , but prefers supine lying, always moving at night. PT-OP-K Range of Motion Start: 03/04/23 16:37 Freq: Status: Active Protocol: Document 03/04/23 16:37 ED (Rec: 03/04/23 16:49 ED [id number]) Lumbar Spine Range of Motion Lumbar Spine Active Testing Position Sitting Flexion 0 Extension 0 PT-OP-L Special Tests Start: 03/04/23 16:37 Freq: Status: Active Protocol: Document 03/04/23 16:37 ED (Rec: 03/04/23 16:49 ED [id number]) Special Tests Lumbar Spine Special Tests Standing Flexion Test Results + PT-OP-Q Treatments Start: 03/04/23 16:37 Freq: Status: Active Protocol: Document 03/07/23 08:02 LRN (Rec: 03/07/23 09:14 LRN [id number]) Gym Equipment Cable Column (Body Solid) Lat Pull Down Details Pull down in front, arms shldr width apart Resistance 10# Reps/Time 11' Therapeutic Exercises Sitting Exercises Piriformis stretch Sitting Exercise Name Neutral spine trng before: Side sit with knee up on chair Side left Reps/Minutes 68 Comments Much extra time to determine max tolerated position for stretch discomfort TA tightening Sitting Exercise Name TA/trunk extensor tightening Reps/Minutes 2-3 breath hold x 10 Comments Cuing for posture and holding. Standing Exercises Hip Flexor stretch Standing Exercise Name Neutral Spine trng before: Split leg stance hip flexor stretch Side bilateral Reps/Minutes 4' Comments Extra timeMuch extra time to determine max tolerated position for stretch Self-Care/Home Management Treatment Education Other Education Discussed at pt's request her goals with therapy and wishes for therapy (not to hurt with therapy). Pt discussed at length her plans for future ( moving away at end of month to warmer climate), and trip in a week and not wanting to hurt . Discussed her HEP using Sit & Fit online ex program, diet, tolerated rest positions , and extensively discussed home exercise. Educated pt in use of modality cold or hot for pain management. Educated pt in end-goal for Piriformis stretch. Activities Self-Care/Home Management Activities I/S pt to use cryotherapy at home for discomfort. I/S pt she can resume lat pull down (5 reps) of her HEP, and add TA tightening exercise and Piriformis stretch. Pt not wanting to do Piriformis stretch due to discomfort in sitting; therefore told pt to not do stretch. PT-OP-T Assessment and Plan Start: 03/04/23 16:37 Freq: Status: Active Protocol: Document 03/07/23 08:02 LRN (Rec: 03/07/23 09:14 LRN [id number]) Physical Therapy Assessment Goals Oswestry [facility] Goal (LTG) Pt will improve Oswestry Low back questionnaire by 10 points to a score <10/50. LTG Duration 6 weeks lumbar flexion Impairment lumbar flexion tolerance Short Term Goal (STG) pt will demonstrate ability to flex lumbar spine partially in sitting and supine position c/ pain <4/10. STG Duration 3 weeks Strong Nitric Operator Goal (LTG) Pt will be able to bend over and get hands to ankles in standing position c/ pain <4/ 10. LTG Duration 6-8 weeks HEP Impairment HEP Short Term Goal (STG) pt will report performing HEP >3 days/week. STG Duration 3 weeks Penitentiary Goal (LTG) pt will report performing HEP >3 days/week. LTG Duration 6-8 weeks Assessment Summary Assessment Pt with chronic LBP, wanting stability ex's and interested in learning what ex's that would be good for her. She appears to have 3 weeks ago doing an online HEP (Sit & Fit ) involving use of UE's and LE 's. She did not tolerate ex's given to her; therefore is reporting more L leg pain that has increased numbness in an L5 pattern. She had no c/o LBP with Lat pull down ex and TA tightening today, but did have discomfort in L lateral sacral border with crossing ankle over knee or side sit partial distance of ankle to knee. The pt required a lot of extra time to perform Lat Pull Down with proper posture and avoiding discomfort. Pt felt she did not tolerate well learning her positional limit with side sit Piriformis stretch. Pt rehab for improvement is expected to be a very slow process, one she will probably have to continue once she moves to [place] for the winter. Physical Therapy Plan Frequency and Duration Frequency of Treatment 2x/Week Duration of treatment (weeks) 12 Plan of Care Start Date 03/04/23 Plan of Care End Date 06/02/23 Next Visit Focus/Plan Next Note Type Treatment Note Next Visit Plan Review response to HEP started : I/S pt to start her previous HEP of TB lat pull down and TA tightening. Pt wanting to start standing hip flexor stretch and hip stretch Fig 4, at home (already doing). Add TA tightening with her UE row or shoulder ext from her current HEP.
--- NOTE | 2023-03-10 15:03 | PT.OTN ---
Current Diagnoses Low back pain, unspecified (03/10/23) Physical Therapy Treatment Note PT-OP-A Visit Information Start: 03/04/23 16:37 Freq: Status: Active Protocol: Document 03/10/23 14:08 LRN (Rec: 03/10/23 15:02 LRN [id number]) Out-Patient Physical Therapy Visit Information Visit Information Visit Type Treatment Note Visit Start Time 14:09 Visit Stop Time 14:51 Total Visit Minutes 41 Visit Number 3 Evaluation Information Evaluation Date 03/04/23 PT-OP-B Current Condition Start: 03/04/23 16:37 Freq: Status: Active Protocol: Document 03/04/23 16:37 ED (Rec: 03/04/23 16:49 ED [id number]) Current Condition History of Current Condition Onset Date chronic Current Complaints low back pain History of Current Condition Pt states that she has had low back pain for almost 2 decades. She has had PT before and it made her pain worse and she hasn't had it since. She does occasionally go to a chiropractor. She states that she doesn't ever flex her spine b/c it hurts and she also doesn't like to extend it b/c that hurts. 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 She does hike and she normally can do that okay. She states she is hesistant for physical therapy b/c of past experiences but is willing to try it again. PT-OP-C Subjective Start: 03/04/23 16:37 Freq: Status: Active Protocol: Document 03/10/23 14:08 LRN (Rec: 03/10/23 15:02 LRN [id number]) OP-PT Subjective Patient Comments Patient Comments States she did not worsen after last ex session. Soreness in the back is 3/10 and buttock pain is 0/10. PT-OP-K Range of Motion Start: 03/04/23 16:37 Freq: Status: Active Protocol: Document 03/04/23 16:37 ED (Rec: 03/04/23 16:49 ED [id number]) Lumbar Spine Range of Motion Lumbar Spine Active Testing Position Sitting Flexion 0 Extension 0 PT-OP-L Special Tests Start: 03/04/23 16:37 Freq: Status: Active Protocol: Document 03/04/23 16:37 ED (Rec: 03/04/23 16:49 ED [id number]) Special Tests Lumbar Spine Special Tests Standing Flexion Test Results + PT-OP-Q Treatments Start: 03/04/23 16:37 Freq: Status: Active Protocol: Document 03/10/23 14:08 LRN (Rec: 03/10/23 15:02 LRN [id number]) Gym Equipment Cable Column (Body Solid) Lat Pull Down Details Pull down in front, arms shldr width apart Resistance 10# Reps/Time 10x 2 w/rest btn sets Therapeutic Exercises Sitting Exercises Chest Press Sitting Exercise Name Chest Press Side bilateral Equipment Used Back support & Lev 1 TB Reps/Minutes 10 x 2 Comments A lot of cuing for NS, engaging abdominals & breath coordination. Row Sitting Exercise Name Row Side bilateral Equipment Used Lev 2 TB Reps/Minutes 10x Comments Cuing for NS, TA & breath coordination Standing Exercises Row Standing Exercise Name Row Side bilateral Equipment Used Lev 1 TB Reps/Minutes 10x Comments Cuing for NS, TA & breath coordination Self-Care/Home Management Treatment Education Patient Education Home Exercise Program Other Education Pt lead discussion at length about her pain, possible injury - need for imaging, ADLs/activities (ex garden work), lifting, positioning, ex in hot tub, and ex in [place] where she will be moving to. Pt needing much encouragement to progress slowly and not get impatient over slow progress. Recommended pt seek referral for continuation of PT once she moves and discussed possible chronic pain program. Activities Self-Care/Home Management Activities I/S pt to continue her UE ex's of her sit and stretch program (row, lat pull down), and added chest press with back supported and TA tight. I/S pt in slow stretch to Sciatic n in hot tub: knee flex/ext with foot in DF. PT-OP-T Assessment and Plan Start: 03/04/23 16:37 Freq: Status: Active Protocol: Document 03/10/23 14:08 LRN (Rec: 03/10/23 15:02 LRN [id number]) Physical Therapy Assessment Goals Oswestry Chicken Cutter Goal (LTG) Pt will improve Oswestry Low back questionnaire by 10 points to a score <10/50. LTG Duration 6 weeks lumbar flexion Impairment lumbar flexion tolerance Short Term Goal (STG) pt will demonstrate ability to flex lumbar spine partially in sitting and supine position c/ pain <4/10. STG Duration 3 weeks Chicken Cutter Goal (LTG) Pt will be able to bend over and get hands to ankles in standing position c/ pain <4/ 10. LTG Duration 6-8 weeks HEP Impairment HEP Short Term Goal (STG) pt will report performing HEP >3 days/week. STG Duration 3 weeks Chicken Cutter Goal (LTG) pt will report performing HEP >3 days/week. LTG Duration 6-8 weeks Assessment Summary Assessment Pt requires much encouragement and education due to her fear of movement but also because of her poor awareness of functional movement that can create pain or ignoring positioning or movement that can create or increase pain. The pt is focused on imaging as a means of learning what to do rather than using body response to activities to limit her function. She appears to be more receptive to being better at monitoring her activities/movement to prevent pain. Physical Therapy Plan Frequency and Duration Frequency of Treatment 2x/Week Duration of treatment (weeks) 12 Plan of Care Start Date 03/04/23 Plan of Care End Date 06/02/23 Next Visit Focus/Plan Next Note Type Treatment Note Next Visit Plan Review response to HEP started : I/S pt to start her previous HEP of TB lat pull down and TA tightening. Pt wanting to start standing hip flexor stretch and hip stretch Fig 4, at home (already doing). Add TA tightening with her UE row or shoulder ext from her current HEP.
--- NOTE | 2023-03-19 08:30 | PT.OTN ---
Addendum entered and electronically signed by Idalmis Crowell PTA 03/19/23 09:05: Suggested pt to add 1 appt to follow up with PT for any further support before DC that appt 03/27/23, moving south 04/02[place]23. Original Note: Current Diagnoses Low back pain, unspecified (03/19/23) Physical Therapy Treatment Note PT-OP-A Visit Information Start: 03/04/23 16:37 Freq: Status: Active Protocol: Document 03/19/23 07:30 SP (Rec: 03/19/23 09:01 SP [id number]) Out-Patient Physical Therapy Visit Information Visit Information Visit Type Treatment Note Visit Start Time 07:30 Visit Stop Time 08:30 Total Visit Minutes 60 Visit Number 4 Number of TRADE SPECIALIST Visits 1 Evaluation Information Evaluation Date 03/04/23 PT-OP-B Current Condition Start: 03/04/23 16:37 Freq: Status: Active Protocol: Document 03/04/23 16:37 ED (Rec: 03/04/23 16:49 ED [id number]) Current Condition History of Current Condition Onset Date chronic Current Complaints low back pain History of Current Condition Pt states that she has had low back pain for almost 2 decades. She has had PT before and it made her pain worse and she hasn't had it since. She does occasionally go to a chiropractor. She states that she doesn't ever flex her spine b/c it hurts and she also doesn't like to extend it b/c that hurts. 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 She does hike and she normally can do that okay. She states she is hesistant for physical therapy b/c of past experiences but is willing to try it again. PT-OP-C Subjective Start: 03/04/23 16:37 Freq: Status: Active Protocol: Document 03/19/23 07:30 SP (Rec: 03/19/23 09:01 SP [id number]) OP-PT Subjective Patient Comments Patient Comments Pt no significant improvement. She reports piriformis stretch seated causes pain in L hip and wanting to see if can modify, tends to get latent response to how things. Wanting Home HEP to get stronger in her home and allow ADLs painfree. She has 1 more appt then leaving in 12 days to go [place]. She reports PT-OP-K Range of Motion Start: 03/04/23 16:37 Freq: Status: Active Protocol: Document 03/04/23 16:37 ED (Rec: 03/04/23 16:49 ED [id number]) Lumbar Spine Range of Motion Lumbar Spine Active Testing Position Sitting Flexion 0 Extension 0 PT-OP-L Special Tests Start: 03/04/23 16:37 Freq: Status: Active Protocol: Document 03/04/23 16:37 ED (Rec: 03/04/23 16:49 ED [id number]) Special Tests Lumbar Spine Special Tests Standing Flexion Test Results + PT-OP-Q Treatments Start: 03/04/23 16:37 Freq: Status: Active Protocol: Document 03/19/23 07:30 SP (Rec: 03/19/23 09:01 SP [id number]) Gym Equipment Cable Column (Body Solid) Lat Pull Down Details Pull down in front, arms shldr width apart Resistance 10#> 15# Reps/Time 10x 2 w/rest btn sets Therapeutic Exercises Supine Exercises ugo stretch Supine Exercise Name trialed and caused L hip pain- DC supine pull down Supine Exercise Name discussed not performed supine Resistance Tb #2 Equipment Used hooklying Comments assess for HEP next tx TA SLR Supine Exercise Name added to HEP Resistance therapist hand under pt lower ribcage Equipment Used TA/lower ribcage toward table/ opp knee bent ft table Reps/Minutes x8 reps- cued level pelvis Comments VC & tactile cue for PPT, weakness prox quad& TA- painfree effort/shaky sciatic nerve glide Supine Exercise Name added to HEP: w/ ankle pump Resistance L>R Equipment Used grasp behind thigh- good response Reps/Minutes x10 AP x2 sets Comments cued NS, lower leg ext, gentle HS stretch add AP fig 4 stretch Supine Exercise Name added to HEP Side left Equipment Used foot facing inside opp knee Reps/Minutes 20 SH Comments good feedback stretch piriformis stretch Supine Exercise Name added to HEP Side left Equipment Used opp LE bent Reps/Minutes 20SH Comments good feedback stretch Sidelying Exercises clamshell Sidelying Exercise Name added to HEP Side bilateral Resistance AROM Reps/Minutes x10 Comments cued PPT/TA improved hip abd fac, less back recruitment Sitting Exercises rear facing pull down Sitting Exercise Name added in PT for HEP Resistance TB #2 orange Equipment Used seated on chair rear facing wall Reps/Minutes 2x10 Comments cued NS and TA, slight reclined- good core fac and ab /multif bracing Piriformis stretch Sitting Exercise Name Neutral spine trng before: Side sit with knee up on chair Side left Reps/Minutes 1 reps Comments caused L hip pain even with NS - Hold -good stretch supine Standing Exercises self STMs Standing Exercise Name added glut ball wal Side left Equipment Used racquetball/ tennis ball Reps/Minutes 20 sec rolling Comments good feedback glut/piriformis stretch Hip Flexor stretch Standing Exercise Name Neutral Spine trng before: Split leg stance hip flexor stretch Side bilateral Equipment Used HOLD Reps/Minutes 20 SH Comments Max cues for PPT/ NS- caused back irritation Other Exercises 1/2 kneel hip flexor stretch Other Exercise Name added to HEP- w/ Arm raise Side bilateral Resistance L>R Equipment Used pillows under knee Reps/Minutes 2 reps x20 SH Comments good feedback stretch front hip if TA/PPT post cues Self-Care/Home Management Treatment Education Patient Education Body Mechanics,Home Exercise Program,Joint Protection Other Education Extensive time spent through HEP instruction with neutral pelvis alignment and TA engagement to provide spinal support. Modified seated stretch to supine with better response. See goal for added HEP today. PT-OP-T Assessment and Plan Start: 03/04/23 16:37 Freq: Status: Active Protocol: Document 03/19/23 07:30 SP (Rec: 03/19/23 09:01 SP [id number]) Physical Therapy Assessment Goals [facility] Goal (LTG) Pt will improve [facility]estry Low back questionnaire by 10 points to a score <10/50. LTG Duration 6 weeks lumbar flexion Impairment lumbar flexion tolerance Short Term Goal (STG) pt will demonstrate ability to flex lumbar spine partially in sitting and supine position c/ pain <4/10. STG Duration 3 weeks Life Skills Consultant Goal (LTG) Pt will be able to bend over and get hands to ankles in standing position c/ pain <4/ 10. LTG Duration 6-8 weeks HEP Impairment HEP Short Term Goal (STG) pt will report performing HEP >3 days/week. 03/19/23: added clamshell, Sciatic nerve glide, Piriformis and Fig 4 stretch, 1/2 kneel hip flexor stretch, self STM glut ball wall, lat pull down supine vs seated rearfacing on chair vs tball. STG Duration 3 weeks updated 03/19/23 Life Skills Consultant Goal (LTG) pt will report performing HEP >3 days/week. LTG Duration 6-8 weeks Assessment Summary Assessment Extra time spent on understanding neutal spine in all positions. Improved engagement with verbal/tactile cues. Modified hip stretching to supine vs seated with better reported response. Pt reponded well in PT with added gentle core and hip AROM exercises with noted TA weakness and understands better how to engage wtih progression slowly and alignment is important to be aware of. Pt reported little L hip irritation still end tx post trial of Ugo zaragoza DC'sarah but felt better with sciatic nerve glide and core/ hip HEP. Physical Therapy Plan Frequency and Duration Frequency of Treatment 2x/Week Duration of treatment (weeks) 12 Plan of Care Start Date 03/04/23 Plan of Care End Date 06/02/23 Therapeutic Interventions Therapeutic Interventions Gait Training,Home Exercise Program,Joint Mobilizations, Manual Therapy,Neuromuscular Re-education,Patient/Caregiver Education,Self-Care/Home Management,Soft Tissue Mobilization,Taping, Therapeutic Activities, Therapeutic Exercises Modalities Biofeedback,Cold Pack/Ice Massage,Electric Stimulation, Hot Packs Next Visit Focus/Plan Next Note Type Treatment Note Next Visit Plan Assess HEP: if ok, progress bird dog, body mechanics squat to feed animal. Review response to HEP started : I/S pt to start her previous HEP of TB lat pull down and TA tightening. Add TA tightening with her UE row or shoulder ext from her current HEP.
--- NOTE | 2023-03-21 08:25 | PT.OTN ---
Current Diagnoses Low back pain, unspecified (03/21/23) Physical Therapy Treatment Note PT-OP-A Visit Information Start: 03/04/23 16:37 Freq: Status: Active Protocol: Document 03/21/23 07:29 SP (Rec: 03/21/23 09:02 SP [id number]) Out-Patient Physical Therapy Visit Information Visit Information Visit Type Treatment Note Visit Start Time 07:30 Visit Stop Time 08:25 Total Visit Minutes 55 Visit Number 5 Number of GLOBAL PROCESS OWNER Visits 2 Evaluation Information Evaluation Date 03/04/23 PT-OP-B Current Condition Start: 03/04/23 16:37 Freq: Status: Active Protocol: Document 03/04/23 16:37 ED (Rec: 03/04/23 16:49 ED [id number]) Current Condition History of Current Condition Onset Date chronic Current Complaints low back pain History of Current Condition Pt states that she has had low back pain for almost 2 decades. She has had PT before and it made her pain worse and she hasn't had it since. She does occasionally go to a chiropractor. She states that she doesn't ever flex her spine b/c it hurts and she also doesn't like to extend it b/c that hurts. 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 She does hike and she normally can do that okay. She states she is hesistant for physical therapy b/c of past experiences but is willing to try it again. PT-OP-C Subjective Start: 03/04/23 16:37 Freq: Status: Active Protocol: Document 03/21/23 07:29 SP (Rec: 03/21/23 09:02 SP [id number]) OP-PT Subjective Patient Comments Patient Comments Pt reports piriformis stretch seems to irritate her hips/ lower back and wants to know what can do differently to allow stretch but not hurt hip ? She states rest of exercises seem to be doing well and compliant with. Not doing bridges or bridge with band given at eval. PT-OP-K Range of Motion Start: 03/04/23 16:37 Freq: Status: Active Protocol: Document 03/04/23 16:37 ED (Rec: 03/04/23 16:49 ED [id number]) Lumbar Spine Range of Motion Lumbar Spine Active Testing Position Sitting Flexion 0 Extension 0 PT-OP-L Special Tests Start: 03/04/23 16:37 Freq: Status: Active Protocol: Document 03/04/23 16:37 ED (Rec: 03/04/23 16:49 ED [id number]) Special Tests Lumbar Spine Special Tests Standing Flexion Test Results + PT-OP-Q Treatments Start: 03/04/23 16:37 Freq: Status: Active Protocol: Document 03/21/23 07:29 SP (Rec: 03/21/23 09:02 SP [id number]) Therapeutic Exercises Supine Exercises ITB stretch Supine Exercise Name trialed for lateral hip stretch- DC Side bilateral Reps/Minutes 15 SH Comments cued for trunk/postural alignment straighter, irritation to lateral hip supine pull down Supine Exercise Name performed- to easy- DC Resistance Tb #2 Equipment Used hooklying Reps/Minutes 5 reps Comments feels fine, not challenging TA SLR Supine Exercise Name reviewed HEP Resistance therapist hand under pt lower ribcage Equipment Used TA/lower ribcage toward table/ opp knee bent ft table Reps/Minutes x8 reps- cued level pelvis Comments VC & tactile cue for PPT, weakness prox quad& TA- painfree effort/shaky sciatic nerve glide Supine Exercise Name reviewed HEP: w/ ankle pump Resistance L>R Equipment Used grasp behind thigh- good response Reps/Minutes x10 AP x2 sets Comments cued NS, lower leg ext, gentle HS stretch add AP piriformis stretch Supine Exercise Name reviewed HEP Side left Equipment Used opp LE bent Reps/Minutes 20SH Comments reports pain so stopped, not think a good thing right now. Sidelying Exercises clamshell Sidelying Exercise Name reviewed HEP Side bilateral Resistance AROM (gave TB #1 peach for progression later when hermann) Equipment Used ok AROM, #1 TB to much strain in L hip today Reps/Minutes x10 Comments cued PPT/TA improved hip abd fac, less back recruitment Sitting Exercises rear facing pull down Sitting Exercise Name reviewed HEP Resistance TB #2 orange Equipment Used seated front chair, slight recline (anchored behind high) Reps/Minutes 2x10 Comments good core fac and ab/multif bracing Chest Press Sitting Exercise Name Chest Press Side bilateral Equipment Used TB #2 anchored shld height behind Reps/Minutes 10 x 2 Comments good NS/TA Row Sitting Exercise Name Row Side bilateral Equipment Used Lev 2 TB Reps/Minutes 10x Comments Good NS, TA & breath coordination Standing Exercises self STMs Standing Exercise Name reviewed glut ball wall Side left Equipment Used racquetball Reps/Minutes 20 sec rolling Comments states feels little sore but ok if needed to lessen muscle tightness Row Standing Exercise Name Row & added Ext Side bilateral Equipment Used Lev 1 TB Reps/Minutes 2x 10 Comments good breath, NS/TA, and open/ pec stretch, rhomboid engagement, elong postur Other Exercises quadruped bird dog Other Exercise Name added to HEP Side bilateral Equipment Used UE/ LE ext Reps/Minutes 5 reps each side alternating Comments cued level across shlds, pelvis good response contact floor, no lift now Self-Care/Home Management Treatment Education Patient Education Body Mechanics,Home Exercise Program,Joint Protection, Posture Other Education Extensive time discussion for awareness of postural&pelvic alignment TA needed for back support during ADLs: carrying groceries, bending down feed dog bowl, lifting laundry, hiking on local trails for safety and reduce back and R hip discomfort. She verbalized understanding and trying to be more mindful in moment to adjust alignment/TA as needed during activity. PT-OP-T Assessment and Plan Start: 03/04/23 16:37 Freq: Status: Active Protocol: Document 03/21/23 07:29 SP (Rec: 03/21/23 09:02 SP [id number]) Physical Therapy Assessment Goals [facility] Goal (LTG) Pt will improve Osw[facility] Low back questionnaire by 10 points to a score <10/50. 03/21/23: provided questionaire to take home and bring back next tx. LTG Duration 6 weeks updated 03/21/23 lumbar flexion Impairment lumbar flexion tolerance Short Term Goal (STG) pt will demonstrate ability to flex lumbar spine partially in sitting and supine position c/ pain <4/10. 03/21/23: 4/10. STG Duration 3 weeks Four Slide Machine Operator Goal (LTG) Pt will be able to bend over and get hands to ankles in standing position c/ pain <4/ 10. 03/21/23: 4/10 LBP reports can flex forward standing to cut toe nail foot on toilet back pain. 2/10 LBP reaching toward floor to feed dog. Not as bad as used to be. Mindful lifting heavy things (decrease wt each if can) to decrease risk pain. LTG Duration 6-8 weeks progressing 03/21/23 HEP Impairment HEP Short Term Goal (STG) pt will report performing HEP >3 days/week. 03/19/23: added clamshell, Sciatic nerve glide, Piriformis and Fig 4 stretch, 1/2 kneel hip flexor stretch, self STM glut ball wall, lat pull down supine vs seated rearfacing on chair vs tball. 03/21/23: progressing: added bird dog, supine pulldown, modified segmental bridge, TA SLR. Good feedback response. STG Duration 3 weeks progressing 03/21/23 [facility] Goal (LTG) pt will report performing HEP >3 days/week. 03/21/23: performing HEP daily . LTG Duration 6-8 weeks progressing 03/21/23 Assessment Summary Assessment Pt doesn't respond well to lateral hip piriformis stretch but tolerates self STM ball on wall for decrease muscle tension. She has good tolerance to progression in core and hip strengthening exercises AROM and light band resistance. Time spent reviewing postural and pelvic alignment with good understanding. responded well to progression with HEP with no adverse affect today, she stated will let PT next tx know how did after tx, tends to have latent response if adverse affects/soreness/pain if have any. Physical Therapy Plan Frequency and Duration Frequency of Treatment 2x/Week Duration of treatment (weeks) 12 Plan of Care Start Date 03/04/23 Plan of Care End Date 06/02/23 Therapeutic Interventions Therapeutic Interventions Gait Training,Home Exercise Program,Joint Mobilizations, Manual Therapy,Neuromuscular Re-education,Patient/Caregiver Education,Self-Care/Home Management,Soft Tissue Mobilization,Taping, Therapeutic Activities, Therapeutic Exercises Modalities Biofeedback,Cold Pack/Ice Massage,Electric Stimulation, Hot Packs Next Visit Focus/Plan Next Note Type Discharge Note Next Visit Plan Finalize HEP, DC to HEP per pt request. Assess HEP as needed: stretching, fig 4 if ok, TA SLR, review bird dog, reverse pull down if needed, segmental bridge, resisted shld ext, spend some time body mechanics squat during ADLs (feed animal, lift dog food back, etc.) Add any progression. She wants to do more hiking locally with less hip/back pain. Trial hurdles/uneven surface stepping for postural/ core engagement corrections if needed.
--- NOTE | 2023-03-21 08:25 | PT.OTN ---
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 She has had PT before and it made her pain worse and she hasn't had it since. She does occasionally go to a chiropractor. She states that she doesn't ever flex her spine b/c it hurts and she also doesn't like to extend it b/c that hurts. 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 She does hike and she normally can do that okay. She states she is hesistant for physical therapy b/c of past experiences but is willing to try it again. PT-OP-C Subjective Start: 03/04/23 16:37 Freq: Status: Active Protocol: Document 03/21/23 07:29 SP (Rec: 03/21/23 09:02 SP [id number]) OP-PT Subjective Patient Comments Patient Comments Pt reports piriformis stretch seems to irritate her hips/ lower back and wants to know what can do differently to allow stretch but not hurt hip ? She states rest of exercises seem to be doing well and compliant with. Not doing bridges or bridge with band given at eval. PT-OP-K Range of Motion Start: 03/04/23 16:37 Freq: Status: Active Protocol: Document 03/04/23 16:37 ED (Rec: 03/04/23 16:49 ED [id number]) Lumbar Spine Range of Motion Lumbar Spine Active Testing Position Sitting Flexion 0 Extension 0 PT-OP-L Special Tests Start: 03/04/23 16:37 Freq: Status: Active Protocol: Document 03/04/23 16:37 ED (Rec: 03/04/23 16:49 ED [id number]) Special Tests Lumbar Spine Special Tests Standing Flexion Test Results + PT-OP-Q Treatments Start: 03/04/23 16:37 Freq: Status: Active Protocol: Document 03/21/23 07:29 SP (Rec: 03/21/23 09:02 SP [id number]) Therapeutic Exercises Supine Exercises ITB stretch Supine Exercise Name trialed for lateral hip stretch- DC Side bilateral Reps/Minutes 15 SH Comments cued for trunk/postural alignment straighter, irritation to lateral hip supine pull down Supine Exercise Name performed- to easy- DC Resistance Tb #2 Equipment Used hooklying Reps/Minutes 5 reps Comments feels fine, not challenging TA SLR Supine Exercise Name reviewed HEP Resistance therapist hand under pt lower ribcage Equipment Used TA/lower ribcage toward table/ opp knee bent ft table Reps/Minutes x8 reps- cued level pelvis Comments VC & tactile cue for PPT, weakness prox quad& TA- painfree effort/shaky sciatic nerve glide Supine Exercise Name reviewed HEP: w/ ankle pump Resistance L>R Equipment Used grasp behind thigh- good response Reps/Minutes x10 AP x2 sets Comments cued NS, lower leg ext, gentle HS stretch add AP piriformis stretch Supine Exercise Name reviewed HEP Side left Equipment Used opp LE bent Reps/Minutes 20SH Comments reports pain so stopped, not think a good thing right now. Sidelying Exercises clamshell Sidelying Exercise Name reviewed HEP Side bilateral Resistance AROM (gave TB #1 peach for progression later when hermann) Equipment Used ok AROM, #1 TB to much strain in L hip today Reps/Minutes x10 Comments cued PPT/TA improved hip abd fac, less back recruitment Sitting Exercises rear facing pull down Sitting Exercise Name reviewed HEP Resistance TB #2 orange Equipment Used seated front chair, slight recline (anchored behind high) Reps/Minutes 2x10 Comments good core fac and ab/multif bracing Chest Press Sitting Exercise Name Chest Press Side bilateral Equipment Used TB #2 anchored shld height behind Reps/Minutes 10 x 2 Comments good NS/TA Row Sitting Exercise Name Row Side bilateral Equipment Used Lev 2 TB Reps/Minutes 10x Comments Good NS, TA & breath coordination Standing Exercises self STMs Standing Exercise Name reviewed glut ball wall Side left Equipment Used racquetball Reps/Minutes 20 sec rolling Comments states feels little sore but ok if needed to lessen muscle tightness Row Standing Exercise Name Row & added Ext Side bilateral Equipment Used Lev 1 TB Reps/Minutes 2x 10 Comments good breath, NS/TA, and open/ pec stretch, rhomboid engagement, elong postur Other Exercises quadruped bird dog Other Exercise Name added to HEP Side bilateral Equipment Used UE/ LE ext Reps/Minutes 5 reps each side alternating Comments cued level across shlds, pelvis good response contact floor, no lift now Self-Care/Home Management Treatment Education Patient Education Body Mechanics,Home Exercise Program,Joint Protection, Posture Other Education Extensive time discussion for awareness of postural&pelvic alignment TA needed for back support during ADLs: carrying groceries, bending down feed dog bowl, lifting laundry, hiking on local trails for safety and reduce back and R hip discomfort. She verbalized understanding and trying to be more mindful in moment to adjust alignment/TA as needed during activity. PT-OP-T Assessment and Plan Start: 03/04/23 16:37 Freq: Status: Active Protocol: Document 03/21/23 07:29 SP (Rec: 03/21/23 09:02 SP [id number]) Physical Therapy Assessment Goals Oswestry Intermediate Goal (LTG) Pt will improve Oswestry Low back questionnaire by 10 points to a score <10/50. 03/21/23: provided questionaire to take home and bring back next tx. LTG Duration 6 weeks updated 03/21/23 lumbar flexion Impairment lumbar flexion tolerance Short Term Goal (STG) pt will demonstrate ability to flex lumbar spine partially in sitting and supine position c/ pain <4/10. 03/21/23: 4/10. STG Duration 3 weeks Enamel Shader Goal (LTG) Pt will be able to bend over and get hands to ankles in standing position c/ pain <4/ 10. 03/21/23: 4/10 LBP reports can flex forward standing to cut toe nail foot on toilet back pain. 2/10 LBP reaching toward floor to feed dog. Not as bad as used to be. Mindful lifting heavy things (decrease wt each if can) to decrease risk pain. LTG Duration 6-8 weeks progressing 03/21/23 HEP Impairment HEP Short Term Goal (STG) pt will report performing HEP >3 days/week. 03/19/23: added clamshell, Sciatic nerve glide, Piriformis and Fig 4 stretch, 1/2 kneel hip flexor stretch, self STM glut ball wall, lat pull down supine vs seated rearfacing on chair vs tball. 03/21/23: progressing: added bird dog, supine pulldown, modified segmental bridge, TA SLR. Good feedback response. STG Duration 3 weeks progressing 03/21/23 Intermediate Goal (LTG) pt will report performing HEP >3 days/week. 03/21/23: performing HEP daily . LTG Duration 6-8 weeks progressing 03/21/23 Assessment Summary Assessment Pt doesn't respond well to lateral hip piriformis stretch but tolerates self STM ball on wall for decrease muscle tension. She has good tolerance to progression in core and hip strengthening exercises AROM and light band resistance. Time spent reviewing postural and pelvic alignment with good understanding. responded well to progression with HEP with no adverse affect today, she stated will let PT next tx know how did after tx, tends to have latent response if adverse affects/soreness/pain if have any. Physical Therapy Plan Frequency and Duration Frequency of Treatment 2x/Week Duration of treatment (weeks) 12 Plan of Care Start Date 03/04/23 Plan of Care End Date 06/02/23 Therapeutic Interventions Therapeutic Interventions Gait Training,Home Exercise Program,Joint Mobilizations, Manual Therapy,Neuromuscular Re-education,Patient/Caregiver Education,Self-Care/Home Management,Soft Tissue Mobilization,Taping, Therapeutic Activities, Therapeutic Exercises Modalities Biofeedback,Cold Pack/Ice Massage,Electric Stimulation, Hot Packs Next Visit Focus/Plan Next Note Type Treatment Note Next Visit Plan Assess HEP as needed: stretching, fig 4 if ok, TA SLR, review bird dog, reverse pull down if needed, segmental bridge, resisted shld ext, spend some time body mechanics squat during ADLs (feed animal, lift dog food back, etc.) Add any progression. She wants to do more hiking locally with less hip/back pain. Trial hurdles/uneven surface stepping for postural/ core engagement corrections if needed.
--- NOTE | 2023-03-27 09:46 | PT.OTN ---
Current Diagnoses Low back pain, unspecified (03/27/23) Physical Therapy Treatment Note PT-OP-A Visit Information Start: 03/04/23 16:37 Freq: Status: Active Protocol: Document 03/27/23 08:01 LRN (Rec: 03/27/23 09:46 LRN [id number]) Out-Patient Physical Therapy Visit Information Visit Information Visit Type Treatment Note Visit Start Time 08:01 Visit Stop Time 08:45 Total Visit Minutes 44 Visit Number 6 Evaluation Information Evaluation Date 03/04/23 PT-OP-B Current Condition Start: 03/04/23 16:37 Freq: Status: Active Protocol: Document 03/04/23 16:37 ED (Rec: 03/04/23 16:49 ED [id number]) Current Condition History of Current Condition Onset Date chronic Current Complaints low back pain History of Current Condition Pt states that she has had low back pain for almost 2 decades. She has had PT before and it made her pain worse and she hasn't had it since. She does occasionally go to a chiropractor. She states that she doesn't ever flex her spine b/c it hurts and she also doesn't like to extend it b/c that hurts. 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 She does hike and she normally can do that okay. She states she is hesistant for physical therapy b/c of past experiences but is willing to try it again. PT-OP-C Subjective Start: 03/04/23 16:37 Freq: Status: Active Protocol: Document 03/27/23 08:01 LRN (Rec: 03/27/23 09:46 LRN [id number]) OP-PT Subjective Patient Comments Patient Comments States she has had a sore back from an exercise that she is not sure of which one. States she ex's only 1x/day, but does it daily. Always uses heat or ice for pain and usually uses ice after exercise. Patient Questionnaires Oswestry Low Back Index Oswestry Score 18/50 = 36/100 Oswestry Impairment 20 to 39% Impaired (Score 20- 39) OP-PT Pain Assessment Pain Assessment Grid Paper Pain Assessment Grid Completed Yes Location low back Intensity 4 Scale Used Numeric (0 - 10) Pain Aggravating Factors Position,ADL's,Activity, Exercise,Bending,Lifting PT-OP-K Range of Motion Start: 03/04/23 16:37 Freq: Status: Active Protocol: Document 03/04/23 16:37 ED (Rec: 03/04/23 16:49 ED [id number]) Lumbar Spine Range of Motion Lumbar Spine Active Testing Position Sitting Flexion 0 Extension 0 PT-OP-L Special Tests Start: 03/04/23 16:37 Freq: Status: Active Protocol: Document 03/04/23 16:37 ED (Rec: 03/04/23 16:49 ED [id number]) Special Tests Lumbar Spine Special Tests Standing Flexion Test Results + PT-OP-Q Treatments Start: 03/04/23 16:37 Freq: Status: Active Protocol: Document 03/27/23 08:01 LRN (Rec: 03/27/23 09:46 LRN [id number]) Gym Equipment Cable Column (Body Solid) Lat Pull Down Details Pull down in front, arms shldr width apart Resistance 10#> 15# Reps/Time 10x 2 w/rest btn sets Therapeutic Exercises Supine Exercises Hip IR stretch Supine Exercise Name LE roll in-outs (feet 20 deg's AB) Side bilateral Reps/Minutes 2 SH x 10 Comments No pain noted, Cuing for NS/TA Sidelying Exercises Sciatic n glide. Sidelying Exercise Name Knee ext w/ankle pumps Side bilateral Reps/Minutes 10 ankle pumps Comments much extra time taken to determine best position and tolerated stretch Sitting Exercises rear facing pull down Sitting Exercise Name reviewed HEP Resistance TB #1 orange Equipment Used seated front chair, slight recline (anchored behind high) Reps/Minutes 10x 2 Comments good core fac and ab/multif bracing Chest Press Sitting Exercise Name Chest Press Side bilateral Equipment Used TB #2 anchored shld height behind Reps/Minutes 10 x 2 Comments good NS/TA Row Sitting Exercise Name Row Side bilateral Equipment Used Lev 2 TB Reps/Minutes 10x 2 Comments Good NS, TA & breath coordination Standing Exercises Hip Flexor stretch Standing Exercise Name Neutral Spine trng before: Split leg stance hip flexor stretch Side bilateral Reps/Minutes 2 SH x 3 Comments Max cues for PPT/ NS- caused back irritation Therapeutic Activity Therapeutic Activity Supine positional training Name Positional training in sup w/ slight rise under small of LB. Reps/Minutes 2' Comments folded hand towel under small of LB. Forward bending in sitting Name Forward bending in sitting mechanics (alternating reach, L/S flex w/TA) Reps/Minutes 3' NIghttime positioniong training Name Semi-prone positioning alternative training, sidelie positional training. Reps/Minutes 18' Comments Pillows used in front and btn legs. Educated pt in positioning of LB and hips for tolerance and how to advance positioning to provide very slight stretch to hip IR's. Self-Care/Home Management Treatment Education Patient Education Home Exercise Program Other Education Educated pt in Lui Milk for pain relief w/handout issued. Activities Self-Care/Home Management Activities Issued & reviewed HEP: LE roll in/out for improving hip IR>ER mobility. PT-OP-T Assessment and Plan Start: 03/04/23 16:37 Freq: Status: Active Protocol: Document 03/27/23 08:01 LRN (Rec: 03/27/23 09:46 LRN [id number]) Physical Therapy Assessment Goals Oswestry Residential Goal (LTG) Pt will improve Oswestry Low back questionnaire by 10 points to a score <10/50. 03/21/23: provided questionaire to take home and bring back next tx. 03/24/23: ABIMAEL score is 18. LTG Duration 6 weeks (03/24/23: Improved, NOT MET GOAL) lumbar flexion Impairment lumbar flexion tolerance Short Term Goal (STG) pt will demonstrate ability to flex lumbar spine partially in sitting and supine position c/ pain <4/10. 03/21/23: 4/10. 03/24/23: Can bend over and reach the floor 2-3 times. STG Duration 3 weeks (03/24/23: MET GOAL) Residential Goal (LTG) Pt will be able to bend over and get hands to ankles in standing position c/ pain <4/ 10. 03/21/23: 4/10 LBP reports can flex forward standing to cut toe nail foot on toilet back pain. 2/10 LBP reaching toward floor to feed dog. Not as bad as used to be. Mindful lifting heavy things (decrease wt each if can) to decrease risk pain. LTG Duration 6-8 weeks (03/24/23: Partially met goal) HEP Impairment HEP Short Term Goal (STG) pt will report performing HEP >3 days/week. 03/19/23: added clamshell, Sciatic nerve glide, Piriformis and Fig 4 stretch, 1/2 kneel hip flexor stretch, self STM glut ball wall, lat pull down supine vs seated rearfacing on chair vs tball. 03/21/23: progressing: added bird dog, supine pulldown, modified segmental bridge, TA SLR. Good feedback response. 03/27/23: Pt execising daily. STG Duration 3 weeks (03/21/23: MET GOAL ) Residential Goal (LTG) pt will report performing HEP >3 days/week. 03/21/23: performing HEP daily . 03/27/23: Pt execising daily. LTG Duration 6-8 weeks (03/21/23: MET GOAL) Progress Towards Goals Progress Comments function improved: ABIMAEL score is 18/50 (20-39% impaired), was 20/50 (40-59% impaired). Pain decreased from 6/10 to 4/ 10. Assessment Summary Assessment Pt was being seen for PT for chronic LBP. She has had difficulty advancing her exercise due to pain and fear of pain, but performs her HEP daily most of the time. The pt demonstrates low tolerance to exercise and low tolerance to stretching more than strengthening; therefore she needs to progress in her reps and stretch hold time to improve mobility and strength more quickly. Sleeping posture (partial stomach) can hinder her progress. The pt does appear to be trying to progress herself, but fear of pain limits her from exercise. The pt does appear to have a good attitude towards improving and has good potential to improve over time if she can stay committed and consistent with performing and progressing of her HEP. The pt is being discharged to her [facility] due to [place] move [place] the [place] . Physical Therapy Plan Discharge Physical Therapy Discharge Comments The pt could benefit from continues skilled physical therapy to progress her in her exercises in the area she will be residing over the winter. Thank you for your referral.
== END 2023-03-31 14:15 | disposition home or self-care (01) ==
LOC: PHYS 08:00
PROVIDERS: Family Provider Family Medicine; PCP Family Medicine; Referring Provider Physician Assistant; Visit Provider Physician Assistant
DX: M54.50 Low back pain, unspecified (principal)
CPT/HCPCS: 97110; 97162; 97530; 97535

== ENCOUNTER → 2023-10-20 11:14 | Outpatient (CLI) | payer MEDICARE, SELFPAY ==
--- NOTE | 2023-10-20 11:15 | DI.US.S_ITS ---
PROCEDURE: US SOFT TISSUE HEAD AND NECK INDICATIONS: left sided neck pain; patient concern swollen lymph TECHNIQUE: Real-time scanning was performed of the neck region of interest, with image documentation. COMPARISON: None. FINDINGS: Targeted sonographic evaluation of the left neck were acquired. No suspicious mass, abnormal fluid collection, or lymphadenopathy. Incidental note of normal mid cervical chain lymph nodes. IMPRESSION: No acute sonographic abnormalities in the left neck. No suspicious mass, fluid collection, or adenopathy. Dictated by: Patric Glass M.D. on 10/20/2023 at 16:03 Approved by: Patric Glass M.D. on 10/20/2023 at 16:03
== END ==
PROVIDERS: Family Provider Family Medicine; PCP Family Medicine; Referring Provider Family Medicine; Visit Provider Family Medicine
DX: M54.2 Cervicalgia (principal)
CPT/HCPCS: 76536

== ENCOUNTER → 2024-02-02 06:57 | Outpatient (CLI) | payer MEDICARE, SELFPAY ==
[2024-02-02 08:05] LABS: Add Manual Diff / Slide Review NO; Basophils Absolute Auto 0 /uL (0-100); Basophils Percent Auto 0.6 % (0-2); Eosinophils Absolute Auto 100 /uL (0-450); Eosinophils Percent Auto 1.6 % (2-4); Hematocrit 36.5 % (36-46); Hemoglobin 12.4 g/dL (12.0-16.0); Lymphocytes Absolute Auto 2300 /uL (1100-4500); Lymphocytes Percent Auto 26.9 % (25-40); Mean Corpuscular HGB Conc 33.8 % (30-36); Mean Corpuscular Hemoglobin 28.6 PG (26-34); Mean Corpuscular Volume 84.6 fL (80-100); Monocytes Absolute Auto 500 /uL (0-900); Monocytes Percent Auto 6.3 % (3-14); Neutrophils Absolute Auto 5500 /uL (1500-7000); Neutrophils Percent Auto 64.6 % (50-75); Platelet Count 308 X10^3/uL (150-400); Red Blood Cell Count 4.32 X10^6/uL (4.0-5.2); Red Cell Distribution Width 13.8 % (11.6-14.8); White Blood Cell Count 8.5 X10^3/uL (4.5-11.0)
[2024-02-02 08:36] LABS: BUN Creatinine Ratio 21.3 (6-22); Blood Urea Nitrogen 19 mg/dL (7-17); Calcium 9.2 mg/dL (8.4-10.2); Carbon Dioxide 26 mmol/L (22-32); Chloride 104 mmol/L (98-107); Cholesterol 193 mg/dL (140-199); Estimated Glomerular Filt Rate > 60 mL/min (>60); Glucose 80 mg/dL (80-110); HDL Cholesterol 65 mg/dL (40-60); HEMOLYSIS < 15 (0-50); LDL Cholesterol Calculated 116 mg/dL (<100); Potassium 4.2 mmol/L (3.4-5.1); Sodium 138 mmol/L (137-145); Triglycerides 59 mg/dL (35-150)
[2024-02-02 09:03] LABS: TSH w/ Reflex to FT4 4.31 uIU/mL (0.47-4.68)
== END ==
PROVIDERS: Family Provider Family Medicine; PCP Family Medicine; Referring Provider Nurse Practitioner Family; Visit Provider Nurse Practitioner Family
DX: E03.9 Hypothyroidism, unspecified (principal); Z13.9 Encounter for screening, unspecified; R14.0 Abdominal distension (gaseous)
CPT/HCPCS: 36415; 80048; 80061; 84443; 85025

== ENCOUNTER → 2024-02-18 08:26 | Outpatient (CLI) | payer MEDICARE, SELFPAY ==
--- NOTE | 2024-02-18 08:27 | DI.MG.S_ITS ---
BILATERAL DIGITAL SCREENING MAMMOGRAM 3D/2D WITH CAD: 02/18/2024 CLINICAL: Routine screening. Comparison is made to exams dated: 01/03/2023 mammogram, 01/02/2022 mammogram, and 01/01/2021 mammogram - . The breasts are heterogeneously dense, which may obscure small masses (category c / 51-75% glandular tissue). Current study was also evaluated with a Computer Aided Detection (CAD) system. There are benign post operative findings in the left breast. No significant masses, calcifications, or other findings are seen in either breast. There has been no significant interval change. IMPRESSION: BENIGN There is no mammographic evidence of malignancy. A 1 year screening mammogram is recommended. Based on the Tyrer Cuzick model (a risk assessment model) the patient's lifetime risk is 11.3% and her 10 year risk is 5.7%. According to the ACR, ACS, and NCCN guidelines, an annual breast MRI exam along with mammogram is recommended if the patient's lifetime risk is 20% or greater. This exam was interpreted at Station ID: [id number]. NOTE: For mammograms, a report in lay terms will be sent to the patient. Approximately 15% of breast malignancies will not be visualized mammographically. In the management of a palpable breast mass, a negative mammogram must not discourage biopsy of a clinically suspicious lesion. Electronically Signed By: Leilani Hyman M.D., Ph.D. yadira/more:02/18/2024 09:16:07 letter sent: Normal Exam ACR BI-RADS Category 2: Benign [id number]
== END ==
LOC: MAMMO 08:26
PROVIDERS: Family Provider Family Medicine; PCP Nurse Practitioner Family; Referring Provider Nurse Practitioner Family; Visit Provider Nurse Practitioner Family
DX: Z12.31 Encounter for screening mammogram for malignant neoplasm of breast (principal); R92.333 Mammographic heterogeneous density, bilateral breasts
CPT/HCPCS: 77063; 77067

== ENCOUNTER → 2024-02-19 11:06 | Outpatient (CLI) | payer MEDICARE, SELFPAY ==
--- NOTE | 2024-02-19 11:06 | DI.RAD.S_ITS ---
PROCEDURE: XR DEXA AXIAL SKELETON INDICATIONS: screening osteoporosis COMPARISON: [facility], GRAZYNA, DEXA AXIAL SKELETON, 11/07/2016, 9:57. FINDINGS: Lumbar Spine (L4 excluded due to increased density): Bone mineral density 1.104 g/cm2, T score 0, previously 1. Left Hip: Bone mineral density 0.872 g/cm2, T score -0.6, previously 0.2. Left Femoral Neck: Bone mineral density 0.826 g/cm2, T score -0.2, previously -0.1. Right Hip: Bone mineral density 0.842 g/cm2, T score -0.8, previously -0.1. Right Femoral Neck: Bone mineral density 0.8 g/cm2, T score -0.4, previously 0.1. Fracture Risk Calculation (when applicable): Not reported due to normal bone mineral density. (T score greater or equal to -1.0 to: NORMAL) (T score from -1.1 to -2.4: OSTEOPENIA) (T score less than or equal to -2.5: OSTEOPOROSIS) IMPRESSION: Normal bone mineral density. Follow-up guidelines as follows: Osteoporosis: Consider a repeat DEXA and Vertebral Fracture Assessment (VFA) exam in 2 years or sooner if medically necessary, to reassess this patient's status. Osteopenia: Consider a repeat DEXA in 2-3 years to reassess this patient's status, or if there is a new clinical indication. Normal: Consider a repeat DEXA in 5 years or sooner, or if there is a new clinical indication. All treatment decisions require clinical judgment and consideration of individual patient factors, including patient preferences, comorbidities, previous drug use, risk factors not captured in the FRAX model (e.g., frailty, falls, vitamin D deficiency, increased bone turnover, interval significant decline in bone density ) and possible under- or over-estimation of fracture risk by FRAX. In addition, the NOF Guide recommends that FDA-approved medical therapies be considered in postmenopausal women and men age >= 50 years with a: * Hip or vertebral (clinical or morphometric) fracture * T-score of <=-2.5 at the spine or hip * Ten-year fracture probability by FRAX of >= 3% for hip fracture or >=20% for major osteoporotic fracture. People with diagnosed cases of osteoporosis or at high risk for fracture should have regular bone mineral density tests. For patients eligible for Medicare, routine testing is allowed once every 2 years. The testing frequency can be increased to one year for patients who have rapidly progressing disease, those who are receiving or discontinuing medical therapy to restore bone mass, or have additional risk factors. Dictated by: Harshad Borjas M.D. on 02/19/2024 at 14:53 Approved by: Harshad Borjas M.D. on 02/19/2024 at 14:55
== END ==
PROVIDERS: Family Provider Family Medicine; PCP Nurse Practitioner Family; Referring Provider Nurse Practitioner Family; Visit Provider Nurse Practitioner Family
DX: M81.0 Age-related osteoporosis without current pathological fracture (principal)
CPT/HCPCS: 77080

== ENCOUNTER → 2025-02-18 10:57 | Outpatient (CLI) | payer MEDICARE, SELFPAY ==
--- NOTE | 2025-02-18 10:58 | DI.MG.S_ITS ---
MM screening mammo BI: 02/18/2025. BI-RADS: 1 CLINICAL: 69-year old female for bilateral screening mammogram. Tyrer-Cuzick lifetime risk of 8.5%. No personal or first-degree family history of breast cancer. The patient had a prior left breast biopsy. PRIOR EXAMS 02/18/2024, 01/03/2023, 01/02/2022, 01/01/2021. MAMMOGRAPHY TECHNIQUE: 2D and 3D (tomosynthesis) digital mammographic views obtained, with additional images as needed for full coverage. Current study was also evaluated with a Computer Aided Detection (CAD) system. DENSITY C. The breasts are heterogeneously dense, which may obscure small masses. MAMMOGRAPHY FINDINGS Bilateral: No suspicious mass, asymmetry, microcalcification, or other abnormality seen. IMPRESSION: * No evidence of malignancy. RECOMMENDATIONS Bilateral * Annual screening mammography. OVERALL ASSESSMENT CATEGORY BI-RADS-1: Negative. The [employer] recommends annual screening mammography beginning at age 40 for women with average risk of breast cancer. ELECTRONICALLY SIGNED: Gina Herring M.D. on 02/19/2025 at 10:45:10 PM PT Interpreting Station ID: [id number]
== END ==
PROVIDERS: Family Provider Family Medicine; PCP Nurse Practitioner Family; Referring Provider Nurse Practitioner Family; Visit Provider Nurse Practitioner Family
DX: Z12.31 Encounter for screening mammogram for malignant neoplasm of breast (principal); R92.333 Mammographic heterogeneous density, bilateral breasts
CPT/HCPCS: 77063; 77067